=== PATIENT | female | born 1950 | race Caucasian/White ===

== ENCOUNTER → 2016-09-07 | Outpatient (CLI) | payer BC ==
[~2016-09-07] MED LIST: AUGMENTIN500 MG PO; DEXILANT60 MG PO; ELIQUIS5 MG PO; FLORASTOR250 MG PO; FOLIC ACID1 MG PO; MAG-OX-400(241400 MG PO; METHOTREXATE2.5 MG PO; NEURONTIN300 MG PO; NORCO 5-325 MG1 TAB PO; PLAQUENIL200 MG PO; PROTONIX40 MG PO; TOPROL XL 5050 MG PO; TYLENOL/COD#31 TAB PO
== END | disposition disaster alternative care site (69) ==
LOC: GRAD 08:06
DX: N20.0 Calculus of kidney (principal)